=== PATIENT | male | born 1960 | race Caucasian/White ===

== ENCOUNTER → 2016-07-18 | Day surgery (SDC) | payer OTHER ==
[~2016-07-18] VITALS: Ht 182.9 cm; Wt 87.7 kg
[~2016-07-18] MED LIST: IBUPROFEN200 MG PO; NORCO 5-325 TA1 EACH PO; PERCOCET 5-3251 EACH PO
--- NOTE | ~2016-07-18 | OR ---
PATIENT'S NAME: MARIA M [facility] AGE: 55 Y [address] ROOM: [place] [address] LOCATION: [facility] [place] ADMIT DATE: 07/18/2016 OR/Procedure Report DISCHARGE DATE: FAMILY PHYSICIAN: Luis Manuel Dodson MD ATTENDING PHYSICIAN: Luis Manuel Ponce SURGEON: Luis Manuel Ponce MD [employer] TECHNICIAN SUPERVISOR: DATE OF PROCEDURE: 07/18/2016 PREOPERATIVE DIAGNOSIS: Right ureteral calculus with failed conservative management. POSTOPERATIVE DIAGNOSIS: Right ureteral calculus with failed conservative management. PROCEDURE: 1. Cystoscopy with retrograde. 2. Right ureteroscopy and stone basket extraction. 3. Right ureteral stent placement. ANESTHESIA: General. INDICATION: This is a 55-year-old gentleman experiencing his 1st episode of symptomatic stone disease. He had initially presented last . CT scan revealed an approximately 3.5 mm right ureteral calculus. Appropriately, he was given a trial of conservative management. Unfortunately, he was back in the emergency room yesterday with increasing pain. His CT scan had been repeated. The stone had moved distally a bit, but it was still obstructing. Considering the fact he was back in the emergency room, he was felt to have failed conservative management, and he was referred for intervention. DESCRIPTION OF PROCEDURE: Having obtained his informed consent, the patient was taken to the operating room. He was prepped and draped sterilely and in lithotomy position. A brief general anesthetic was administered. A 21-Korean cystoscope was assembled and guided into the urethra. The course through urethra was unremarkable. The bladder itself demonstrates no tumors, stones, or foreign bodies. Bladder examination was confirmed with a 70-degree lens. Under fluoroscopy, I see nails in the area of the left hip. However, I cannot appreciate a stone. Therefore, a retrograde was obtained. Indeed, there was a filling defect just below the SI joint. He has a narrow delicate ureter below that and he is dilated above. I passed a guidewire. It bounces against a density in that area. I manipulated beyond and there was a gush of fluid and debris. He has a very PATIENT'S NAME: MARIA M [facility] AGE: 55 Y [address] ROOM: [place] [address] LOCATION: [facility] [place]MIT DATE: 07/18/2016 OR/Procedure Report DISCHARGE DATE: FAMILY PHYSICIAN: Luis Manuel Dodson MD ATTENDING PHYSICIAN: Luis Manuel Ponce narrow orifice. Therefore, I passed a balloon dilator over the wire. The orifice and intramural tunnel are dilated. There was a gush of more fluid. I then passed a semirigid scope. The stone was visualized as anticipated. It was engaged in a coat of basket. It was extracted and sent for analysis. With the requisite dilation, I opted for temporary stent. My safety wire was back-loaded into the cystoscope. Over that, I passed a 4.8 multilink stent. We have a nice level of placement cystoscopically and fluoroscopically. The dangler string is left in place. The patient tolerated this well. Blood loss was negligible. The stone was sent for analysis. The patient returned to recovery awake and in stable condition. LUIS MANUEL PONCE MD [facility]/modl /[id number] CC: Luis Manuel Dodson MD d: 07/18/16 2329 t: 07/19/16 1012, OPERATIVE SUMMARY
== END | disposition disaster alternative care site (69) ==
LOC: GPOC 11:00 → GSDC 12:24
PROC: 0TC68ZZ Extirpation of Matter from Right Ureter, Via Natural or Artificial Opening Endoscopic (ICD-10-PCS; principal; 2016-07-18)
DX: N13.2 Hydronephrosis with renal and ureteral calculous obstruction (principal); Z98.890 Other specified postprocedural states
CPT/HCPCS: C1725; C1769; C2617; J1885; J1956; J2001; J2405; J3010; J7120